=== PATIENT | male | born 1995 | race Caucasian/White ===

== ENCOUNTER 2021-01-13 20:22 | Emergency (ER) | payer OTHER ==
[~2021-01-13] VITALS: Ht 188 cm; Wt 68.2 kg
[2021-01-13 20:53] VITALS: BP 128/72; PULSE 75; TEMP 98.4
== END 2021-01-13 20:53 | disposition home or self-care (01) ==
LOC: COL.ER 20:22
DX: G89.18 Other acute postprocedural pain (principal)